=== PATIENT | male | born 1965 | race Caucasian/White ===

== ENCOUNTER 2017-06-30 05:23 | Day surgery (SDC) | payer OTHER ==
[~2017-06-30] VITALS: Ht 185.4 cm; Wt 91.6 kg
--- NOTE | ~2017-06-30 | O ---
[facility] [place] [address] OPERATIVE REPORT Name: NAVEEN MIRANDA Lucia Room #: DEP [facility]#: [id number] Admission: 06/30/17 Attend Phys: Lavelle Dobbins MD Discharge: 06/30/17 Date of : 65 Report #: [id number] THIS REPORT FOR: //name// CC: SHARRI physician/PCP Lavelle Dobbins DATE OF SERVICE: 06/30/2017 SERVICE: Orthopedics. FACILITY: [facility]. SURGEON: Lavelle Dobbins MD MORTGAGE SERVICING SPECIALIST: None. PREOPERATIVE DIAGNOSES: 1. Left knee pain. 2. Left knee medial meniscus tear. POSTOPERATIVE DIAGNOSIS: Left knee medial and lateral meniscus tears. PROCEDURE: Left knee partial medial and lateral meniscectomies. COMPLICATIONS: None. DRAINS: None. SPECIMENS: None. FINDINGS: 1. Unstable flap tear of the posterior horn of the medial meniscus extending into the body. 2. Partial-thickness inner rim lateral meniscus tear, approximately 15% inner width of the meniscus in the white-white zone, treated with debridement. 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 MRI showed significant medial meniscus tear with a flap component that was unstable with discussion about treatment options and he wished to undergo surgical management. Risks, benefits, alternatives and indications for surgery discussed with him in detail. Risks include but not limited to pain, bleeding, infection, injury to nerves or blood vessels, persistent pain despite surgical intervention, progression of any preexisting chondral injury, [facility] [address] [place] [address] OPERATIVE REPORT Name: NAVEEN MIRANDA Room #: DEP [facility].R.#: [id number] Admission: 06/30/17 Attend Phys: Lavelle Dobbins MD Discharge: 06/30/17 Date of : 65 Report #: [id number] stiffness, need for further surgery as well as complications related to anesthesia such as stroke, heart attack, pulmonary complications, thromboembolic disease and . Despite these risks, he wished to proceed. PROCEDURE IN DETAIL: After left leg was correctly identified as the operative extremity, the patient was taken to the operating room where general anesthesia was induced without complication. He was padded appropriately. Prophylactic antibiotics were administered at appropriate time. Tourniquet was applied to left thigh. He was padded appropriately. Left leg was prepped and draped in standard sterile fashion. Time-out procedure was performed. Esmarch was utilized. Tourniquet was inflated to 300 mmHg. Total tourniquet time was 23 minutes. Standard anterolateral viewing portal followed by anterior medial working portal were established in typical fashion. Diagnostic arthroscopy revealed intact articular cartilage throughout. There were no loose bodies. The ACL and PCL were intact. The medial compartment had intact articular cartilage, although there was unstable flap tear of the medial meniscus. This started at the far posterior horn near the root and extended peripherally. There was noted to be a flap tear that was tucked underneath the meniscus along the medial border of the tibia. This could be displaced into the joint with the probe. This was debrided as was the rest of the unstable portion of the posterior horn with a biter followed by the shaver and meniscal debris was lavaged out of the knee. The knee was then placed in the [id number] position and the lateral compartment was evaluated. There was a very small inner rim radial tear completely within the white-white zone of the lateral meniscus that was midpoint. I proceeded with a limited debridement in this location to prevent this radial tear from propagating into the primary substance of the lateral meniscus. Scope was then placed in the suprapatellar pouch. Again, all meniscal debris was confirmed lavaged out of the knee and then the arthroscopic effusion was drained. Instruments were removed. Portal sites were closed. A total of 20 mL of 0.25% Marcaine was injected into the soft tissues. Sterile dressing was applied followed by compression stocking. The patient was awakened from anesthesia and taken to recovery room in stable condition. There were no complications. All counts were correct. <ELECTRONICALLY SIGNED> By: Lavelle Dobbins MD 07/01/17 [id number] Lavelle Dobbins MD /nt
[~2017-06-30 05:23] MED LIST: ASPIR 8181 MG PO; FISH OIL 1,001000 M2 PO; FLAX OIL1000 MG PO; GLUCOSAMINE CH1 EAC2 PO; MAGOX 400400 MG PO; PENNSAID112 GM TOP; TURMERIC500 M2 PO; VITAMIN D400 UNIT PO
[2017-06-30 14:08] VITALS: BP 135/94
[2017-06-30 16:49] VITALS: BP 135/94
== END 2017-06-30 17:48 | disposition home or self-care (01) ==
LOC: OR 05:23 → TBA 05:24 → OR 09:38
DX: S83.282A Other tear of lateral meniscus, current injury, left knee, initial encounter (principal); S83.242A Other tear of medial meniscus, current injury, left knee, initial encounter; X58.XXXA Exposure to other specified factors, initial encounter; Y93.89 Activity, other specified; Y92.89 Other specified places as the place of occurrence of the external cause; Y99.8 Other external cause status; Z98.890 Other specified postprocedural states
CPT/HCPCS: 50010; 50101; 50405; 51038; 54170; 56527; 57103; 62110; 62900; 70005